=== PATIENT | male | born 2000 | race Asian ===

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

== ENCOUNTER 2019-07-05 21:06 | Emergency (ER) | payer SELFPAY ==
[~2019-07-05] VITALS: Ht 167.6 cm; Wt 100.0 kg
[~2019-07-05 21:06] MED LIST changes: +AMOXICILLIN 8751 TAB PO; +MUCINEX D 12001 TER PO
[2019-07-05 21:12] VITALS: TEMP 98.1
[2019-07-05] MEDS ORDERED: ALBUTEROL0.83 MG/ML IH (23:25)
[2019-07-05] MEDS ORDERED: RT ADVAIR 228 DISKUS IH (23:25)
[2019-07-05] MEDS ORDERED: PROAIR HFA0.09 MG/AC IH (23:25)
[2019-07-05] MEDS ORDERED: PREDNISONE20 MG PO (23:26)
[2019-07-05 23:47] VITALS: BP 138/92; PULSE 81
== END 2019-07-05 23:47 | disposition home or self-care (01) ==
LOC: COL.ER 21:06
DX: J45.901 Unspecified asthma with (acute) exacerbation (principal); Z90.89 Acquired absence of other organs; Z79.51 Long term (current) use of inhaled steroids
CPT/HCPCS: J7512

== ENCOUNTER 2019-07-28 22:11 | Emergency (ER) | payer OTHER ==
[~2019-07-28] VITALS: Ht 167.6 cm; Wt 99.9 kg
[~2019-07-28 22:11] MED LIST changes: +ALBUTEROL0.83 MG/ML IH; +RT ADVAIR 228 DISKUS IH
[2019-07-28 22:17] VITALS: TEMP 98.3
[2019-07-28] MEDS ORDERED: VENTOLIN0.09 MG IH ×2 (23:44)
[2019-07-28] MEDS ORDERED: PREDNISONE20 MG PO ×2 (23:44)
[2019-07-28] MEDS ORDERED: IPRATROPIUM BROM3 M1 IH ×2 (23:44)
[2019-07-29] MEDS ORDERED: PREDNISONE20 MG PO (01:33)
[2019-07-29] MEDS ORDERED: VENTOLIN0.09 MG IH (01:33)
[2019-07-29] MEDS ORDERED: IPRATROPIUM BROM3 M1 IH (01:33)
[2019-07-29 01:40] VITALS: BP 121/74; PULSE 96
== END 2019-07-29 01:38 | disposition home or self-care (01) ==
LOC: COL.ER 22:11
DX: J45.901 Unspecified asthma with (acute) exacerbation (principal); Z90.49 Acquired absence of other specified parts of digestive tract; Z79.52 Long term (current) use of systemic steroids; Z79.51 Long term (current) use of inhaled steroids
CPT/HCPCS: J7512

== ENCOUNTER 2019-08-11 01:58 | Emergency (ER) | payer OTHER ==
[~2019-08-11] VITALS: Ht 167.6 cm; Wt 100.0 kg
[~2019-08-11 01:58] MED LIST changes: +IPRATROPIUM BROM3 M1 IH
[2019-08-11 02:10] VITALS: BP 142/86; TEMP 98.1
[2019-08-11] MEDS ORDERED: PREDNISONE20 MG PO (02:41)
[2019-08-11] MEDS ORDERED: RT ALBUTER2.5 MG/0.5 IH (02:41)
[2019-08-11 03:00] VITALS: PULSE 101
== END 2019-08-11 03:00 | disposition home or self-care (01) ==
LOC: COL.ER 01:58
DX: J45.901 Unspecified asthma with (acute) exacerbation (principal); Z90.89 Acquired absence of other organs; Z79.51 Long term (current) use of inhaled steroids
CPT/HCPCS: J7512

== ENCOUNTER 2021-10-05 21:25 | Emergency (ER) | payer OTHER ==
[~2021-10-05] VITALS: Ht 167.6 cm; Wt 111.4 kg
[~2021-10-05 21:25] MED LIST changes: +RT ALBUTER2.5 MG/0.5 IH
[2021-10-05 21:57] VITALS: TEMP 99.1
[2021-10-06] MEDS ORDERED: PREDNISONE20 MG PO (01:23)
[2021-10-06] MEDS ORDERED: IPRATROPIUM BROM3 M1 IH (01:23)
[2021-10-06] MEDS ORDERED: ZITHROMAX Z PA250 MG PO (01:37)
[2021-10-06 01:40] VITALS: BP 107/63; PULSE 83
== END 2021-10-06 01:40 | disposition home or self-care (01) ==
LOC: COL.ER 21:25
DX: J20.9 Acute bronchitis, unspecified (principal); J45.901 Unspecified asthma with (acute) exacerbation; Z20.822 Contact with and (suspected) exposure to COVID-19; Z79.52 Long term (current) use of systemic steroids; Z79.899 Other long term (current) drug therapy